=== PATIENT | female | born 1965 | race Caucasian/White ===

== ENCOUNTER 2018-12-14 15:37 | Emergency (ER) | payer OTHER ==
[~2018-12-14] VITALS: Ht 165.1 cm; Wt 77.1 kg
[2018-12-14] MEDS ORDERED: NKM (15:48)
--- NOTE | 2018-12-14 15:59 | NUR ---
ED Nurse Note: Patient came in ER from home by herself with c/o of fever for 5days now/started on 12/10/18 and body discomfort at pain scale of 8/10. Took Tylenol unknown dosage at home but no relieve. Went to Urgent Care prior ER consult due to possible blood infection and advised to go to ER. Oral Temp at 100.5F, other VSS. ERMD made aware. Due meds given. Will conitnue to monitor.
--- NOTE | 2018-12-14 16:20 | NUR ---
ED Nurse Note: IV inserted on L AC G20, lab draw done and sent to lab with influenza swab and urine. will continue to monitor.
--- NOTE | 2018-12-14 16:21 | Emergency Room Report ---
History of Present Illness General Chief Complaint: Fever Source: Patient Present Illness HPI Patient is a 53-year-old female who presented after increased fever. Patient reports of increased generalized malaise as well as fever up to 103 to 104 degrees. Patient states that she had onset of symptoms 2 days ago. She denies any cough or difficulty breathing. She states her mother is being hospitalized currently at [facility] for Pneumonia. Patient was noted not to have any cough. She had not been vomiting or having any diarrhea. Patient reports having prior history of fibroids in her uterus and states that she has not had a previous ultrasound. She denies any dysuria. Allergies: Coded Allergies: No Known Allergies (Unverified , 12/14/18) Patient History Past Medical History: see triage record Last Menstrual Period: october Now: No Reviewed Nursing Documentation: PMH: Agreed; PSxH: Agreed Nursing Documentation-PMH Past Medical History: No Stated History Review of Systems All Other Systems: negative except mentioned in HPI Physical Exam Vital Signs Date Time Temp Pulse Resp B/P (MAP) Pulse Ox O2 Delivery O2 Flow Rate FiO2 12/14/18 15:44 101.1 95 16 96 Room Air Sp02 EP Interpretation: reviewed, normal General Appearance: normal inspection, well appearing, no apparent distress, alert, GCS 15 Head: atraumatic ENT: normal ENT inspection, hearing grossly normal, normal voice Neck: normal inspection, full range of motion, supple, no bony tend Respiratory: normal inspection, lungs clear, normal breath sounds, no respiratory distress, no retraction, no wheezing Cardiovascular #1: regular rate, rhythm, no edema Gastrointestinal: normal inspection, normal bowel sounds, non tender, soft, no guarding, no hernia Genitourinary: no CVA tenderness Musculoskeletal: normal inspection, back normal, normal range of motion Neurologic: normal inspection, alert, responsive, speech normal Psychiatric: normal inspection, judgement/insight normal, mood/affect normal Skin: normal inspection, normal color, no rash Medical Decision Making Diagnostic Impression: Primary Impression: Urinary tract infection ER Course Patient presented for fever. Differential diagnosis include was not limited to viral infection, meningitis, pneumonia, urinary tract infection, cholecystitis among others. Because of complexity of patient's case laboratory testing and imaging studies were ordered. Patient was noted to have elevated temperature as well as generalized weakness. She did not have any focal symptoms. Patient was given IV fluids. A urinalysis showed some evidence of urinary infection in which the patient was therefore given Rocephin. Patient's white blood count was minimally elevated.Patient was noted to have some recent ill contacts and patient was advised to return to the hospital she felt worse. Patient was given medications for antibiotics as well as antipyretics.Patient was noted to have a normal lactate and does not appear to be septic. She appears to be stable for outpatient management. Labs Test 12/14/18 16:25 White Blood Count 12.1 K/UL (4.8-10.8) Red Blood Count 3.98 M/UL (4.20-5.40) Hemoglobin 10.5 G/DL (12.0-16.0) Hematocrit 31.4 % (37.0-47.0) Mean Corpuscular Volume 79 FL (80-99) Mean Corpuscular Hemoglobin 26.3 PG (27.0-31.0) Mean Corpuscular Hemoglobin Concent 33.5 G/DL (32.0-36.0) Red Cell Distribution Width 15.7 % (11.6-14.8) Platelet Count 192 K/UL (150-450) Mean Platelet Volume 6.1 FL (6.5-10.1) Neutrophils (%) (Auto) 79.7 % (45.0-75.0) Lymphocytes (%) (Auto) 11.9 % (20.0-45.0) Monocytes (%) (Auto) 6.7 % (1.0-10.0) Eosinophils (%) (Auto) 0.5 % (0.0-3.0) Basophils (%) (Auto) 1.1 % (0.0-2.0) Urine Color Reta Urine Appearance Turbid Urine pH 5 (4.5-8.0) Urine Specific [place] 1.020 (1.005-1.035) Urine Protein 3+ (NEGATIVE) Urine Glucose (UA) Negative (NEGATIVE) Urine Ketones Negative (NEGATIVE) Urine Blood 5+ (NEGATIVE) Urine Nitrite Negative (NEGATIVE) Urine Bilirubin Negative (NEGATIVE) Urine Ictotest Negative (NEGATIVE) Urine Urobilinogen Normal MG/DL (0.0-1.0) Urine Leukocyte Esterase 1+ (NEGATIVE) Urine RBC 2-4 /HPF (0 - 2) Urine WBC 10-15 /HPF (0 - 2) Urine Squamous Epithelial Cells Few /LPF (NONE/OCC) Urine Amorphous Sediment Many /LPF (NONE) Urine Bacteria Many /HPF (NONE) Sodium Level 135 MMOL/L (136-145) Potassium Level 3.6 MMOL/L (3.5-5.1) Chloride Level 99 MMOL/L (98-107) Carbon Dioxide Level 25 MMOL/L (21-32) Anion Gap 11 mmol/L (5-15) Blood Urea Nitrogen 10 mg/dL (7-18) Creatinine 0.8 MG/DL (0.55-1.30) Estimat Glomerular Filtration Rate > 60 mL/min (>60) Glucose Level 103 MG/DL (74-106) Lactic Acid Level 0.90 mmol/L (0.4-2.0) Calcium Level 8.9 MG/DL (8.5-10.1) Total Bilirubin 0.3 MG/DL (0.2-1.0) Aspartate Amino Transf (AST/SGOT) 26 U/L (15-37) Alanine Aminotransferase (ALT/SGPT) 42 U/L (12-78) Alkaline Phosphatase 78 U/L (46-116) Total Creatine Kinase 60 U/L (26-308) Creatine Kinase MB 0.6 NG/ML (0.0-3.6) Creatine Kinase MB Relative Index 1.0 Troponin I 0.000 ng/mL (0.000-0.056) Total Protein 7.0 G/DL (6.4-8.2) Albumin 2.7 G/DL (3.4-5.0) Globulin 4.3 g/dL Albumin/Globulin Ratio 0.6 (1.0-2.7) Last Vital Signs Date Time Temp Pulse Resp B/P (MAP) Pulse Ox O2 Delivery O2 Flow Rate FiO2 12/14/18 15:44 101.1 95 16 96 Room Air Status: improved Disposition: HOME, SELF-CARE Condition: Stable Scripts Cephalexin* (KEFLEX*) 500 Mg Capsule 500 MG ORAL EVERY 6 HOURS, #28 CAP Prov: Kamlesh Maldonado MD 12/14/18 Ibuprofen* (MOTRIN*) 600 Mg Tablet 600 MG ORAL Q8H PRN for For Pain, #30 TAB 0 Refills Prov: Kamlesh Maldonado MD 12/14/18 Referrals: Arianne CEJA,REFERRING (PCP) Kamlesh Maldonado MD December 14, 2018 16:21
[2018-12-14 16:28] VITALS: BP 123/66
[2018-12-14 16:52] LABS: APPEARANCE,URINE TURBID; BILIRUBIN, URINE NEGATIVE (NEGATIVE); COLOR,URINE AMBER; GLUCOSE, URINE (UA) NEGATIVE (NEGATIVE); KETONES,URINE NEGATIVE (NEGATIVE); LEUKOCYTE ESTERASE ,URINE 1+ (NEGATIVE); NITRITE,URINE NEGATIVE (NEGATIVE); PH,URINE 5 (4.5-8.0); PROTEIN,URINE 3+ (NEGATIVE); UROBILINOGEN,URINE NORMAL MG/DL (0.0-1.0)
[2018-12-14 16:59] LABS: BASOPHILS % (AUTO) 1.1 % (0.0-2.0); EOSINOPHILS % (AUTO) 0.5 % (0.0-3.0); HEMATOCRIT 31.4 % (37.0-47.0); HEMOGLOBIN 10.5 G/DL (12.0-16.0); LYMPHOCYTES % (AUTO) 11.9 % (20.0-45.0); MEAN CORPUSCULAR VOLUME 79 FL (80-99); MONOCYTES % (AUTO) 6.7 % (1.0-10.0); NEUTROPHILS % (AUTO) 79.7 % (45.0-75.0); PLATELET COUNT 192 K/UL (150-450); RED BLOOD COUNT 3.98 M/UL (4.20-5.40); RED CELL DISTRIBUTION WIDTH 15.7 % (11.6-14.8); WHITE BLOOD COUNT 12.1 K/UL (4.8-10.8)
[2018-12-14] MEDS ORDERED: cefTRIAXone 1 GM in NS 55 ML IVPB ONE (17:15)
[2018-12-14 17:43] LABS: ANION GAP 11 mmol/L (5-15); BLOOD UREA NITROGEN 10 mg/dL (7-18); CALCIUM 8.9 MG/DL (8.5-10.1); CARBON DIOXIDE 25 MMOL/L (21-32); CHLORIDE 99 MMOL/L (98-107); CREATININE 0.8 MG/DL (0.55-1.30); POTASSIUM 3.6 MMOL/L (3.5-5.1); SODIUM 135 MMOL/L (136-145)
[2018-12-14 17:56] LABS: ALANINE AMINOTRANSFERASE 42 U/L (12-78); ALBUMIN 2.7 G/DL (3.4-5.0); ALBUMIN/GLOBULIN RATIO 0.6 (1.0-2.7); ALKALINE PHOSPHATASE 78 U/L (46-116); ASPARTATE AMINO TRANSFERASE 26 U/L (15-37); BILIRUBIN,TOTAL 0.3 MG/DL (0.2-1.0); CKMB 0.6 NG/ML (0.0-3.6); CREATINE KINASE 60 U/L (26-308)
[2018-12-14] MEDS ORDERED: IBUPROFEN600 MG ORAL (18:42)
[2018-12-14] MEDS ORDERED: CEPHALEXIN500 MG ORAL (18:42)
--- NOTE | 2018-12-14 19:05 | NUR ---
ER DISCHARGE NOTE: Patient is cleared to be discharged per ERMD, pt is aox4, on room air, with stable vital signs. pt was given dc and prescription instructions, pt was able to verbalize understanding, pt id band and iv site removed without complications. pt is able to ambulate with steady gait. pt took all belongings. VSS. No acute distress.
[2018-12-14 19:16] VITALS: BP 110/58
--- NOTE | 2018-12-15 11:55 | Diagnostic Imaging Report ---
Indication: Dyspnea Comparison: None A single view chest radiograph was obtained. Findings: Cardiomediastinal appearance is within normal limits for age. The lungs are clear. Pulmonary vascularity is appropriate. The diaphragmatic contour is smooth and costophrenic angles are sharp. No pleural effusions are identified. The bones are unremarkable. Impression: No acute findings
== END 2018-12-14 19:15 | disposition home or self-care (01) ==
LOC: EMR 15:58
DX: N39.0 Urinary tract infection, site not specified (principal)
CPT/HCPCS: 36415; 71045; 80053; 81003; 82550; 82553; 83605; 84484; 85025; 86710; 87040; 87086; 93005; 96361; 96365; 99284; J0696

== ENCOUNTER 2019-12-29 19:36 | Emergency (ER) | payer MEDICAID, OTHER ==
[~2019-12-29] VITALS: Ht 165.1 cm; Wt 72.6 kg
--- NOTE | 2019-12-29 19:31 | NUR ---
ED Nurse Note: pt walked in to ED for C/O fever since this morning. temp at triage is 102.4 PT denies cough or SOB. denies N/V/D
[2019-12-29 19:32] VITALS: BP 110/62
[~2019-12-29 19:36] MED LIST: CEPHALEXIN500 MG ORAL; IBUPROFEN600 MG ORAL; NKM
--- NOTE | 2019-12-29 19:44 | NUR ---
ED Nurse Note: CXR BEING DONE AT [facility] 4
[2019-12-29] MEDS ORDERED: Acetaminophen 500mg (ES) tab ORAL ONE (19:45)
--- NOTE | 2019-12-29 19:54 | Emergency Room Report ---
History of Present Illness General Chief Complaint: Fever Source: Patient Present Illness HPI 54-year-old female presents with fever, body aches started today, no known aggravating relieving factors severity is mild, constant no cough no congestion no chest pain or shortness of breath she states she may have had some dysuria 2 days ago no flank pain no suprapubic pain no dysuria currently patient presents for evaluation Allergies: Coded Allergies: No Known Allergies (Unverified , 12/14/18) COVID-19 Screening Contact w/high risk pt: No Recent Travel to affected area: No Experienced COVID-19 symptoms?: Yes COVID-19 symptoms experienced: Fever (T>100.4F or >38C) COVID-19 Testing performed MAC OPERATOR: No Patient History Past Medical History: see triage record Last Menstrual Period: na Now: No Reviewed Nursing Documentation: PMH: Agreed; PSxH: Agreed Nursing Documentation-PMH Past Medical History: No History, Except For Review of Systems All Other Systems: negative except mentioned in HPI Physical Exam Vital Signs Date Time Temp Pulse Resp B/P (MAP) Pulse Ox O2 Delivery O2 Flow Rate FiO2 12/29/19 19:28 102.4 98 18 110/62 (78) 98 Room Air Sp02 EP Interpretation: reviewed, normal General Appearance: well appearing, no apparent distress, alert Head: normocephalic, atraumatic Eyes: bilateral eye PERRL, bilateral eye EOMI ENT: uvula midline, moist mucus membranes Neck: supple, thyroid normal, supple/symm/no masses Respiratory: lungs clear, no respiratory distress, no retraction, no accessory muscle use Cardiovascular #1: normal peripheral pulses, regular rate, rhythm, no edema, no gallop, no murmur Gastrointestinal: non tender, soft, no guarding, no rebound Musculoskeletal: normal inspection Neurologic: alert, oriented x3 Psychiatric: mood/affect normal Skin: no rash, warm/dry Medical Decision Making Diagnostic Impression: Primary Impression: Fever Qualified Codes: R50.9 - Fever, unspecified Additional Impression: UTI (urinary tract infection) Qualified Codes: N30.01 - Acute cystitis with hematuria ER Course 54-year-old female presents most likely with viral syndrome, COVID swab sent, UA sent, chest x-ray is negative Patient found to have a UTI, will start antibiotics disposition home with strict return precautions, no evidence of sepsis. Laboratory Tests Test 5/26/20 19:45 Urine Color Yellow Urine Appearance Slightly cloudy Urine pH 6 (4.5-8.0) Urine Specific [place] 1.010 (1.005-1.035) Urine Protein 3+ (NEGATIVE) H Urine Glucose (UA) Negative (NEGATIVE) Urine Ketones Negative (NEGATIVE) Urine Blood 3+ (NEGATIVE) H Urine Nitrite Negative (NEGATIVE) Urine Bilirubin Negative (NEGATIVE) Urine Urobilinogen Normal MG/DL (0.0-1.0) Urine Leukocyte Esterase 3+ (NEGATIVE) H Urine RBC 5-10 /HPF (0 - 2) H Urine WBC 20-30 /HPF (0 - 2) H Urine Squamous Epithelial Cells Few /LPF (NONE/OCC) Urine Bacteria Few /HPF (NONE) Chest X-Ray Diagnostic Results Chest X-Ray Diagnostic Results : Chest X-Ray Ordered: Yes # of Views/Limited/Complete: 1 View Indication: Other - Cough EP Interpretation: Yes Interpretation: no consolidation, no effusion, no pneumothorax, no acute cardiopulmonary disease Impression: No acute disease Electronically Signed by: Jluis Whyte MD Last Vital Signs Date Time Temp Pulse Resp B/P (MAP) Pulse Ox O2 Delivery O2 Flow Rate FiO2 12/29/19 19:32 98 18 Room Air 12/29/19 19:32 102.4 110/62 98 Disposition: HOME, SELF-CARE Condition: Stable Scripts Cephalexin* (KEFLEX*) 500 Mg Tablet 500 MG ORAL EVERY 6 HOURS, #40 CAP Prov: Jluis Whyte MD 12/29/19 Referrals: [facility] Patient Instructions: Urinary Tract Infection, [id number] Additional Instructions: The patient was provided with discharge instructions, notified to follow-up with a primary care doctor and or specialist in the next 24-48 hours, and to return to the ED if they have worsening of their symptoms. Please note that this report is being documented using [employer] technology. This can lead to erroneous entry secondary to incorrect interpretation by the dictating instrument. Jluis Whyte MD December 29, 2019 19:54
[2019-12-29 20:01] LABS: APPEARANCE,URINE SLIGHTLY CLOUDY; BILIRUBIN, URINE NEGATIVE (NEGATIVE); COLOR,URINE YELLOW; GLUCOSE, URINE (UA) NEGATIVE (NEGATIVE); KETONES,URINE NEGATIVE (NEGATIVE); LEUKOCYTE ESTERASE ,URINE 3+ (NEGATIVE); NITRITE,URINE NEGATIVE (NEGATIVE); PH,URINE 6 (4.5-8.0); PROTEIN,URINE 3+ (NEGATIVE); UROBILINOGEN,URINE NORMAL MG/DL (0.0-1.0)
[2019-12-29] MEDS ORDERED: CEPHALEXIN500 M1 ORAL (20:12)
--- NOTE | 2019-12-29 20:17 | NUR ---
ER DISCHARGE NOTE: Patient is cleared to be discharged per ERMD, pt is aox4, on room air, with stable vital signs. pt was given dc and prescription instructions, pt was able to verbalize understanding, pt id band removed without complications. pt is able to ambulate with steady gait. pt took all belongings.
[2019-12-29 20:18] VITALS: BP 116/66
--- NOTE | 2019-12-30 14:41 | Diagnostic Imaging Report ---
Indication: Cough Technique: One view of the chest Comparison: 12/14/2018 Findings: Lungs and pleural spaces are clear. The heart size is normal. There is no significant change. Impression: No acute process
== END 2019-12-29 20:17 | disposition home or self-care (01) ==
LOC: EDBD 19:36 → EMR 19:45
DX: R50.9 Fever, unspecified (principal); N30.01 Acute cystitis with hematuria
CPT/HCPCS: 71045; 81003; 87086; 87181; 87635; Z7502; 99283